=== PATIENT | male | born 1985 | race Two or more races ===

== ENCOUNTER 2020-12-11 12:17 | Outpatient (CLI) | payer OTHER ==
[~2020-12-11 12:17] MED LIST: CATAFLAM50 MG PO; RECTICARE30 GM TP
== END 2020-12-11 12:24 | disposition home or self-care (01) ==
LOC: LAB 12:17
PROVIDERS: ATTEND Internal Medicine Hematology & Oncology
DX: D50.8 Other iron deficiency anemias (principal); R79.89 Other specified abnormal findings of blood chemistry; I10 Essential (primary) hypertension; R74.02 Elevation of levels of lactic acid dehydrogenase [LDH]; K76.89 Other specified diseases of liver; D63.8 Anemia in other chronic diseases classified elsewhere; D55.0 Anemia due to glucose-6-phosphate dehydrogenase [G6PD] deficiency; D51.1 Vitamin B12 deficiency anemia due to selective vitamin B12 malabsorption with proteinuria; D51.0 Vitamin B12 deficiency anemia due to intrinsic factor deficiency; E03.8 Other specified hypothyroidism; E06.3 Autoimmune thyroiditis; G43.009 Migraine without aura, not intractable, without status migrainosus

== ENCOUNTER → 2021-06-11 09:22 | Outpatient (CLI) | payer OTHER | END | disposition home or self-care (01) | LOC: LAB 09:22 | PROVIDERS: ATTEND Internal Medicine Hematology & Oncology | DX: R97.8 Other abnormal tumor markers (principal); R97.0 Elevated carcinoembryonic antigen [CEA]; D50.8 Other iron deficiency anemias; I10 Essential (primary) hypertension; R74.02 Elevation of levels of lactic acid dehydrogenase [LDH]; K76.89 Other specified diseases of liver; D51.8 Other vitamin B12 deficiency anemias; D51.3 Other dietary vitamin B12 deficiency anemia; G43.009 Migraine without aura, not intractable, without status migrainosus; E04.0 Nontoxic diffuse goiter; D64.89 Other specified anemias ==